=== PATIENT | female | born 1995 | race Caucasian/White ===

== ENCOUNTER 2017-12-30 17:04 | Emergency (ER) | payer BC ==
[~2017-12-30] VITALS: Ht 170.2 cm; Wt 104.6 kg
[2017-12-30 17:13] VITALS: TEMP 98.2
[2017-12-30] MEDS ORDERED: DEPO-PROVE150 MG/1 M IM (18:13)
[2017-12-30 18:18] LABS: COLLECTION METHOD CLEAN CATCH
[2017-12-30 18:22] LABS: BASO % 0.3 % (0.0-2.0); EOS # 0.2 (0.0-0.7); EOS % 1.6 % (0-4.0); GRAN # 6.4 (1.4-6.5); GRAN % 63.5 % (42.2-75.2); HEMATOCRIT 43.6 % (37.0-47.0); HEMOGLOBIN 14.6 g/dl (12.5-16.0); LYMPH # 2.6 (1.2-3.4); LYMPH % 25.4 % (20.0-51.0); MEAN CELL VOLUME 87 fl (80.0-100.0); MEAN CORPUSCULAR HEMOGLOBIN 29 pg (27.0-31.0); MEAN CORPUSCULAR HGB CONC 34 g/dl (33.0-37.0); MEAN PLATELET VOLUME 11.1 fl (7.4-10.4); MONO # 0.9 (0.1-0.6); MONO % 8.9 % (1.7-9.3); PLATELET COUNT 322 K/mm3 (130-400); REDCELL DISTRIBUTION WIDTH-CV 12.7 % (11.5-14.5)
[2017-12-30] MEDS ORDERED: PROAIR HFA0.09 MG/AC IH (18:23)
[2017-12-30 18:28] LABS: PH 6 (5-8); SQUAMOUS EPITHELIAL 0-2 /hpf; URINE APPEARANCE Clear; URINE BACTERIA None Seen /hpf; URINE BILIRUBIN Negative (NEGATIVE); URINE BLOOD Negative (NEGATIVE); URINE COLOR Yellow; URINE GLUCOSE Negative (NEGATIVE); URINE KETONE Negative (NEGATIVE); URINE LEUKOCYTE ESTERASE Negative (NEGATIVE); URINE NITRATE Negative (NEGATIVE); URINE PROTEIN(semi-quant) Negative (NEGATIVE); URINE RBC 0-2 /hpf; URINE UROBILINOGEN Negative (NEGATIVE)
[2017-12-30 18:29] LABS: BILIRUBIN,TOTAL 0.3 mg/dL (0.0-1.0); CALCIUM 9.5 mg/dL (8.4-10.2); CREATININE, serum 0.8 mg/dL (0.52-1.25); TOTAL PROTEIN 7.7 gm/dL (6.4-8.2)
[2017-12-30 18:32] LABS: C-REACTIVE PROTEIN 0.5 mg/dL (0.0-0.9)
[2017-12-30 19:04] VITALS: BP 119/73
[2017-12-30 19:19] VITALS: PULSE 80
[2017-12-30] MEDS ORDERED: ANUSOL HC CREAM30 GM TP (19:25)
== END 2017-12-30 19:31 | disposition home or self-care (01) ==
LOC: COL.ER 17:04
PROVIDERS: Emergency Medicine
DX: K62.89 Other specified diseases of anus and rectum (principal)

== ENCOUNTER 2018-01-27 12:36 | Emergency (ER) | payer BC ==
[~2018-01-27] VITALS: Ht 170.2 cm; Wt 102.3 kg
[~2018-01-27 12:36] MED LIST: ANUSOL HC CREAM30 GM TP; DEPO-PROVE150 MG/1 M IM; PROAIR HFA0.09 MG/AC IH
[2018-01-27 12:42] VITALS: BP 145/108; TEMP 98.1
[2018-01-27 13:23] LABS: HEMATOCRIT 47.1 % (37.0-47.0); HEMOGLOBIN 15.9 g/dl (12.5-16.0)
[2018-01-27] MEDS ORDERED: ANUSOL HC CREAM30 GM TP (13:37)
[2018-01-27 13:43] VITALS: PULSE 84
== END 2018-01-27 13:44 | disposition home or self-care (01) ==
LOC: COL.ER 12:36
PROVIDERS: Nurse Practitioner Primary Care
DX: K60.2 Anal fissure, unspecified (principal); Z96.22 Myringotomy tube(s) status

== ENCOUNTER 2018-02-09 02:56 | Emergency (ER) | payer BC ==
[2018-02-09 02:59] VITALS: TEMP 98.8
[2018-02-09 04:01] VITALS: BP 133/71; PULSE 85
== END 2018-02-09 04:00 | disposition home or self-care (01) ==
LOC: COL.ER 02:56
DX: S05.01XA Injury of conjunctiva and corneal abrasion without foreign body, right eye, initial encounter (principal)
CPT/HCPCS: J7040

== ENCOUNTER → 2018-06-14 | Outpatient (CLI) | payer BC | LOC: COL.RAD 09:13 | DX: M25.511 Pain in right shoulder (principal) | CPT/HCPCS: J3301; Q9967 ==

== ENCOUNTER → 2018-07-19 | Outpatient (CLI) | payer BC | LOC: COL.RAD 13:18 | DX: M25.511 Pain in right shoulder (principal) | CPT/HCPCS: J3301; Q9967 ==